=== PATIENT | male | born 1945 | race African-American/Black ===

== ENCOUNTER 2018-09-13 20:00 | Emergency (ER) | payer MEDICARE, OTHER ==
[2018-09-13 20:41] LABS: #Basophils 0.1 thou/uL (0.0-0.2); #Lymphocytes 1.5 thou/uL (1.20-3.40); #Monocytes 0.6 thou/uL (0.11-0.59); #Neutrophils 5.9 thou/uL (1.40-6.50); %Basophils 0.8 % (0.0-1.0); %Eosinophils 0.3 % (0.0-10.0); %Lymphocytes 18.8 % (21.0-51.0); %Monocytes 7.4 % (0.0-10.0); %Neutrophils 72.7 % (42.0-75.0); Anisocytosis SLIGHT = 6-15 cells (100X) (0-5/hpf); Hemoglobin 11.1 g/dL (14.0-18.0); Hypochromia MODERATE=16-30 cells (100X) (0-5/hpf); MDiff Complete? YES; Mean Corpuscular HGB CONC 30.2 g/dL (32.0-36.0); Mean Corpuscular Hemoglobin 22.1 pg (27.0-31.0); Mean Corpuscular Volume 73.3 fL (78.0-98.0); Mean Platelet Volume 8.4 fL (7.4-10.4); Platelet Count 212 thou/uL (130-400); Platelet Morphology Comment Appears Adequate; Poikilocytosis SLIGHT = 6-15 cells (100X) (0-5/hpf); RBC Distribution Width 14.1 % (11.5-14.5); RBC Morphology Abnormal; White Blood Cell (WBC) Count 8.1 thou/uL (4.8-10.8)
[2018-09-13 20:45] LABS: ALT (SGPT) 10 U/L (8-55); AST (SGOT) 13 U/L (5-34); Albumin 4.2 g/dL (3.4-4.8); Alkaline Phosphatase 37 U/L (40-150); Anion Gap 13 mmol/L (10-20); BUN (Urea Nitrogen) 21 mg/dL (8.4-25.7); Bilirubin, Total 0.5 mg/dL (0.2-1.2); Calc. Creatinine Clearance 0 mL/min (70-130); Calcium 9.8 mg/dL (7.8-10.44); Carbon Dioxide 26 mmol/L (23-31); Chloride 109 mmol/L (98-107); Estimated GFR-MDRD 67; Globulin 2.9 g/dL (2.4-3.5); Glucose 110 mg/dL (83-110); Potassium 3.8 mmol/L (3.5-5.1); Protein, Total 7.1 g/dL (5.8-8.1); Sodium 144 mmol/L (136-145)
--- NOTE | 2018-09-13 21:10 | RAD ---
PORTABLE UPRIGHT FRONTAL CHEST RADIOGRAPH 09/13/18 COMPARISON: None. HISTORY: Syncope. FINDINGS: The lungs are clear. The heart and mediastinal contours are unremarkable. IMPRESSION: No acute findings. POS: [facility]
--- NOTE | 2018-09-13 23:37 | CT ---
CT HEAD WITHOUT CONTRAST: 09/13/18 COMPARISON: None. HISTORY: Fall, syncope, vomiting. TECHNIQUE: Axial CT imaging at 5 mm intervals from vertex through skull base with coronal and sagittal reformatt ed imaging. FINDINGS: The imaged paranasal sinuses/mastoid air cells are well aerated. There is atherosclerotic calcificati ons of the cavernous carotid arteries. There is no intracranial hemorrhage, midline shift, mass effe ct or acute osseous abnormality. There is diffuse cerebral volume loss with associated prominence of the CSF containing spaces. There is extensive periventricular deep and subcortical white matter hypod ensity, evidence of small vessel disease. There is a lacunar infarction involving the medial aspect o f the thalamus on the right. IMPRESSION: Chronic findings as described above. No intracranial hemorrhage or displaced calvarial fracture. POS: [facility]
== END 2018-09-13 21:10 | disposition home or self-care (01) ==
LOC: MADERS 20:00
DX: R55 Syncope and collapse (principal); R11.2 Nausea with vomiting, unspecified; I10 Essential (primary) hypertension; Z79.82 Long term (current) use of aspirin; Z79.899 Other long term (current) drug therapy; W06.XXXA Fall from bed, initial encounter
CPT/HCPCS: 70450; 71045; 80053; 84484; 85025; 93005

== ENCOUNTER 2020-09-17 18:14 | Emergency (ER) | payer MEDICARE ==
[2020-09-17 19:19] LABS: Bilirubin Negative (Negative); Blood, Urine Moderate (Negative); Glucose, Urine (Dipstick) Negative (Negative); Ketone, Urine Negative (Negative); Leukocyte Small (Negative); Nitrite Negative (Negative); Protein, Urine (Dipstick) Negative (Neg-Trace)
[2020-09-17 19:22] LABS: Clarity Hazy (Clear)
[2020-09-17 19:30] LABS: Bacteria/HPF 4+ HPF (None Seen); Squamous Epithelial None Seen HPF (0-3); WBC/HPF 21-50 HPF (0-3)
[2020-09-17 19:35] LABS: ALT (SGPT) 24 U/L (8-55); AST (SGOT) 16 U/L (5-34); Albumin 4.3 g/dL (3.4-4.8); Alkaline Phosphatase 51 U/L (40-110); Anion Gap 15 mmol/L (10-20); BUN (Urea Nitrogen) 13 mg/dL (8.4-25.7); Bilirubin, Total 0.5 mg/dL (0.2-1.2); Calc. Creatinine Clearance 0 mL/min (70-130); Calcium 9.4 mg/dL (7.8-10.44); Carbon Dioxide 24 mmol/L (23-31); Chloride 105 mmol/L (98-107); Globulin 3.5 g/dL (2.4-3.5); Glucose 103 mg/dL (83-110); Potassium 3.8 mmol/L (3.5-5.1); Protein, Total 7.8 g/dL (5.8-8.1); Sodium 140 mmol/L (136-145)
[2020-09-17 19:37] LABS: Anisocytosis SLIGHT = 6-15 cells (100X) (0-5/hpf); Band 3 % (5-11); Hypochromia SLIGHT = 6-15 cells (100X) (0-5/hpf); Lymphocytes 12 % (21-51); MDiff Complete? YES; Mean Corpuscular HGB CONC 30.4 g/dL (32.0-36.0); Mean Corpuscular Hemoglobin 21.9 pg (27.0-31.0); Mean Corpuscular Volume 72.2 fL (78.0-98.0); Mean Platelet Volume 9.1 fL (7.4-10.4); Microcytosis SLIGHT = 6-15 cells (100X) (0-5/hpf); Monocytes 5 % (0-10); Neutrophil 80 % (42-75); Platelet Count 216 thou/uL (130-400); Platelet Morphology Comment Appears Adequate; RBC Distribution Width 13.2 % (11.5-14.5); Red Blood Cell (RBC) Count 5.93 mill/uL (4.70-6.10); White Blood Cell (WBC) Count 13.3 thou/uL (4.8-10.8)
[2020-09-17] MEDS ORDERED: Sterile Water 10 ML ONE (20:57)
[2020-09-17] MEDS ORDERED: cefTRIAXone\\ROCEPHIN 1 GM VIAL ONE (20:57)
== END 2020-09-17 22:12 | disposition home or self-care (01) ==
LOC: MADERS 18:14
DX: N39.0 Urinary tract infection, site not specified (principal); I10 Essential (primary) hypertension
CPT/HCPCS: 36415; 80053; 81003; 81015; 85025; 96372; 99284; J0696

== ENCOUNTER 2020-10-14 09:36 | Outpatient (CLI) | payer MEDICARE ==
--- NOTE | 2020-10-14 10:16 | RAD ---
Frontal radiograph pelvis: 10/14/2020 HISTORY: Fall one week ago FINDINGS: There is mild superior joint space narrowing with lateral acetabular osteophyte formation i nvolving both hips. Neither hip appears dislocated. There is no widening of the sacroiliac joints or the pubic symphysis. Pelvic ring appears intact. There is lower lumbar spine degenerative change. IMPRESSION: No displaced fracture noted.
--- NOTE | 2020-10-14 11:16 | RAD ---
RADIOGRAPH RIGHT 2 VIEWS: DATE: 10/14/2020. HISTORY: A 75-year-old male with persistent posttraumatic right hip pain after a fall approximately 1 week ago . FINDINGS: No evidence of a fracture. No dislocation. Femoral head contour is maintained. No subcapital osteo phytes. Vacuum joint phenomenon and sclerosis at right SI joint. IMPRESSION: 1. Normal radiographic appearance of the right hip joint. 2. Osteoarthrosis of the right sacroiliac joint. POS: [facility]
== END 2020-10-14 09:37 | disposition home or self-care (01) ==
LOC: MADRAD 09:36
PROVIDERS: ATTEND Family Medicine
DX: M25.551 Pain in right hip (principal); M47.818 Spondylosis without myelopathy or radiculopathy, sacral and sacrococcygeal region; Z91.81 History of falling
CPT/HCPCS: 72170

== ENCOUNTER 2021-07-11 15:03 | Inpatient (IN) | payer MEDICARE ==
[2021-07-11] MEDS: Atorvastatin Calcium 40 MG TAB PO SCH (22:16)
[2021-07-12] MEDS: Aspirin Chewable 81 MG TAB PO SCH (09:01)
[2021-07-12] MEDS: Multivit, Therapeutic 1 TAB PO SCH (09:01)
[2021-07-12] MEDS: Lisinopril 5 MG TAB PO SCH (09:01)
[2021-07-12] MEDS: Tamsulosin HCl 0.4 MG CAP PO SCH (09:01)
[2021-07-12] MEDS: Atorvastatin Calcium 40 MG TAB PO SCH (20:49)
[2021-07-13] MEDS: Multivit, Therapeutic 1 TAB PO SCH (08:17)
[2021-07-13] MEDS: Lisinopril 5 MG TAB PO SCH (08:17)
[2021-07-13] MEDS: Tamsulosin HCl 0.4 MG CAP PO SCH (08:18)
[2021-07-13] MEDS: Aspirin Chewable 81 MG TAB PO SCH (08:18)
[2021-07-13] MEDS: Atorvastatin Calcium 40 MG TAB PO SCH ×2 (21:00→21:01)
[2021-07-14] MEDS: Lisinopril 5 MG TAB PO SCH (08:45)
[2021-07-14] MEDS: Multivit, Therapeutic 1 TAB PO SCH (08:45)
[2021-07-14] MEDS: Aspirin Chewable 81 MG TAB PO SCH (08:45)
[2021-07-14] MEDS: Tamsulosin HCl 0.4 MG CAP PO SCH (08:46)
[2021-07-14] MEDS: Atorvastatin Calcium 40 MG TAB PO SCH (21:10)
[2021-07-15] MEDS ORDERED: Acetaminophen 325 MG TAB PO PRN ×2 (05:44→20:26)
[2021-07-15] MEDS: Aspirin Chewable 81 MG TAB PO SCH (08:48)
[2021-07-15] MEDS: Tamsulosin HCl 0.4 MG CAP PO SCH (08:48)
[2021-07-15] MEDS: Multivit, Therapeutic 1 TAB PO SCH (08:48)
[2021-07-15] MEDS: Lisinopril 5 MG TAB PO SCH (08:48)
[2021-07-15 19:55] LABS: SARS-CoV-2 PCR by NAA Not Detected (NotDetected)
[2021-07-15] MEDS: Atorvastatin Calcium 40 MG TAB PO SCH (21:27)
[2021-07-16] MEDS: Multivit, Therapeutic 1 TAB PO SCH (08:28)
[2021-07-16] MEDS: Tamsulosin HCl 0.4 MG CAP PO SCH (08:28)
[2021-07-16] MEDS: Lisinopril 5 MG TAB PO SCH (08:28)
[2021-07-16] MEDS: Aspirin Chewable 81 MG TAB PO SCH (08:28)
[2021-07-16] MEDS: Atorvastatin Calcium 40 MG TAB PO SCH (20:37)
[2021-07-17] MEDS: Lisinopril 5 MG TAB PO SCH (08:47)
[2021-07-17] MEDS: Aspirin Chewable 81 MG TAB PO SCH (08:47)
[2021-07-17] MEDS: Multivit, Therapeutic 1 TAB PO SCH (08:47)
[2021-07-17] MEDS: Tamsulosin HCl 0.4 MG CAP PO SCH (08:47)
[2021-07-17] MEDS: Atorvastatin Calcium 40 MG TAB PO SCH (20:44)
[2021-07-18] MEDS: Lisinopril 5 MG TAB PO SCH (08:41)
[2021-07-18] MEDS: Aspirin Chewable 81 MG TAB PO SCH (08:41)
[2021-07-18] MEDS: Multivit, Therapeutic 1 TAB PO SCH (08:42)
[2021-07-18] MEDS: Tamsulosin HCl 0.4 MG CAP PO SCH (08:42)
[2021-07-18] MEDS: Atorvastatin Calcium 40 MG TAB PO SCH (20:20)
[2021-07-19] MEDS: Aspirin Chewable 81 MG TAB PO SCH (09:27)
[2021-07-19] MEDS: Tamsulosin HCl 0.4 MG CAP PO SCH (09:28)
[2021-07-19] MEDS: Multivit, Therapeutic 1 TAB PO SCH (09:28)
[2021-07-19] MEDS: Lisinopril 5 MG TAB PO SCH (09:28)
[2021-07-19] MEDS: Atorvastatin Calcium 40 MG TAB PO SCH (20:07)
[2021-07-20] MEDS: Aspirin Chewable 81 MG TAB PO SCH (09:01)
[2021-07-20] MEDS: Lisinopril 5 MG TAB PO SCH (09:01)
[2021-07-20] MEDS: Tamsulosin HCl 0.4 MG CAP PO SCH (09:03)
[2021-07-20] MEDS: Multivit, Therapeutic 1 TAB PO SCH (09:03)
[2021-07-20] MEDS: Atorvastatin Calcium 40 MG TAB PO SCH (20:14)
[2021-07-21] MEDS: Aspirin Chewable 81 MG TAB PO SCH (08:05)
[2021-07-21] MEDS: Lisinopril 10 MG TAB PO SCH (08:06)
[2021-07-21] MEDS: Multivit, Therapeutic 1 TAB PO SCH (08:07)
[2021-07-21] MEDS: Tamsulosin HCl 0.4 MG CAP PO SCH (08:07)
[2021-07-21] MEDS: Atorvastatin Calcium 40 MG TAB PO SCH (20:24)
[2021-07-22] MEDS: Aspirin Chewable 81 MG TAB PO SCH (08:05)
[2021-07-22] MEDS: Lisinopril 10 MG TAB PO SCH (08:05)
[2021-07-22] MEDS: Tamsulosin HCl 0.4 MG CAP PO SCH (08:05)
[2021-07-22] MEDS: Multivit, Therapeutic 1 TAB PO SCH (08:05)
[2021-07-22 17:13] LABS: SARS-CoV-2 PCR by NAA Not Detected (NotDetected)
[2021-07-22] MEDS: Atorvastatin Calcium 40 MG TAB PO SCH (20:15)
[2021-07-23] MEDS: Multivit, Therapeutic 1 TAB PO SCH (08:24)
[2021-07-23] MEDS: Lisinopril 10 MG TAB PO SCH (08:24)
[2021-07-23] MEDS: Aspirin Chewable 81 MG TAB PO SCH (08:24)
[2021-07-23] MEDS: Tamsulosin HCl 0.4 MG CAP PO SCH (08:24)
[2021-07-23] MEDS: Atorvastatin Calcium 40 MG TAB PO SCH (20:14)
[2021-07-24] MEDS: Lisinopril 10 MG TAB PO SCH (08:45)
[2021-07-24] MEDS: Aspirin Chewable 81 MG TAB PO SCH (08:45)
[2021-07-24] MEDS: Multivit, Therapeutic 1 TAB PO SCH (08:45)
[2021-07-24] MEDS: Tamsulosin HCl 0.4 MG CAP PO SCH (08:45)
[2021-07-24] MEDS: Atorvastatin Calcium 40 MG TAB PO SCH (21:09)
[2021-07-25] MEDS: Aspirin Chewable 81 MG TAB PO SCH (08:44)
[2021-07-25] MEDS: Lisinopril 10 MG TAB PO SCH (08:44)
[2021-07-25] MEDS: Tamsulosin HCl 0.4 MG CAP PO SCH (08:44)
[2021-07-25] MEDS: Multivit, Therapeutic 1 TAB PO SCH (08:44)
[2021-07-25] MEDS: Atorvastatin Calcium 40 MG TAB PO SCH (20:48)
[2021-07-26] MEDS: Tamsulosin HCl 0.4 MG CAP PO SCH (08:36)
[2021-07-26] MEDS: Aspirin Chewable 81 MG TAB PO SCH (08:36)
[2021-07-26] MEDS: Lisinopril 20 MG TAB PO SCH (08:36)
[2021-07-26] MEDS: Multivit, Therapeutic 1 TAB PO SCH (08:37)
[2021-07-26] MEDS: Atorvastatin Calcium 40 MG TAB PO SCH (20:21)
[2021-07-27] MEDS: Lisinopril 20 MG TAB PO SCH (08:32)
[2021-07-27] MEDS: Aspirin Chewable 81 MG TAB PO SCH (08:32)
[2021-07-27] MEDS: Multivit, Therapeutic 1 TAB PO SCH (08:32)
[2021-07-27] MEDS: Tamsulosin HCl 0.4 MG CAP PO SCH (08:32)
[2021-07-27] MEDS: Atorvastatin Calcium 40 MG TAB PO SCH (20:57)
[2021-07-28] MEDS: Tamsulosin HCl 0.4 MG CAP PO SCH (08:15)
[2021-07-28] MEDS: Multivit, Therapeutic 1 TAB PO SCH (08:15)
[2021-07-28] MEDS: Lisinopril 20 MG TAB PO SCH (08:15)
[2021-07-28] MEDS: Aspirin Chewable 81 MG TAB PO SCH (08:15)
[2021-07-28 10:43] VITALS: BMI 21.8
[2021-07-28] MEDS: Atorvastatin Calcium 40 MG TAB PO SCH (20:23)
[2021-07-29] MEDS: Multivit, Therapeutic 1 TAB PO SCH (08:11)
[2021-07-29] MEDS: Lisinopril 20 MG TAB PO SCH (08:11)
[2021-07-29] MEDS: Aspirin Chewable 81 MG TAB PO SCH (08:11)
[2021-07-29] MEDS: Tamsulosin HCl 0.4 MG CAP PO SCH (08:11)
[2021-07-29 14:31] LABS: SARS-CoV-2 PCR by NAA Not Detected (NotDetected)
[2021-07-29] MEDS: Atorvastatin Calcium 40 MG TAB PO SCH (20:57)
[2021-07-30] MEDS: Tamsulosin HCl 0.4 MG CAP PO SCH (07:50)
[2021-07-30] MEDS: Lisinopril 20 MG TAB PO SCH (07:50)
[2021-07-30] MEDS: Multivit, Therapeutic 1 TAB PO SCH (07:50)
[2021-07-30] MEDS: Aspirin Chewable 81 MG TAB PO SCH (07:50)
[2021-07-30] MEDS: Atorvastatin Calcium 40 MG TAB PO SCH (20:35)
[2021-07-31] MEDS: Aspirin Chewable 81 MG TAB PO SCH (08:37)
[2021-07-31] MEDS: Lisinopril 20 MG TAB PO SCH (08:37)
[2021-07-31] MEDS: Tamsulosin HCl 0.4 MG CAP PO SCH (08:37)
[2021-07-31] MEDS: Multivit, Therapeutic 1 TAB PO SCH (08:37)
[2021-07-31] MEDS: Atorvastatin Calcium 40 MG TAB PO SCH (20:19)
[2021-08-01 07:25] VITALS: BP 136/75; TEMP 98.7
[2021-08-01] MEDS: Multivit, Therapeutic 1 TAB PO SCH (08:48)
[2021-08-01] MEDS: Aspirin Chewable 81 MG TAB PO SCH (08:48)
[2021-08-01] MEDS: Lisinopril 20 MG TAB PO SCH (08:48)
[2021-08-01] MEDS: Tamsulosin HCl 0.4 MG CAP PO SCH (08:48)
== END 2021-08-01 12:16 | DRG 57 ==
LOC: MADMS 15:03
PROVIDERS: ADMIT Family Medicine; ATTEND Family Medicine
DX: I69.351 Hemiplegia and hemiparesis following cerebral infarction affecting right dominant side (principal); Z20.822 Contact with and (suspected) exposure to COVID-19; R53.81 Other malaise; R26.81 Unsteadiness on feet; I10 Essential (primary) hypertension; N40.0 Benign prostatic hyperplasia without lower urinary tract symptoms; E78.5 Hyperlipidemia, unspecified; D64.9 Anemia, unspecified; R26.9 Unspecified abnormalities of gait and mobility; F17.210 Nicotine dependence, cigarettes, uncomplicated; F03.90 Unspecified dementia, unspecified severity, without behavioral disturbance, psychotic disturbance, mood disturbance, and anxiety; Z79.82 Long term (current) use of aspirin; Z79.899 Other long term (current) drug therapy
CPT/HCPCS: U0003; U0005